=== PATIENT | female | born 1985 | race Caucasian/White ===

== ENCOUNTER → 2016-07-31 | Outpatient (CLI) | payer BC ==
--- NOTE | 2016-07-31 12:03 | XR ---
EXAMINATION TYPE: XR chest 2V DATE OF EXAM ORDERED: 07/31/2016 11:53 AM HISTORY: Bronchitis J20.9. REFERENCE: Previous study dated 05/16/2014. FINDINGS: The lungs are clear. Pleural spaces are clear. Heart size is normal. IMPRESSION: NORMAL CHEST.
== END ==
LOC: RADXRMAIN 11:28
PROVIDERS: ATTEND Internal Medicine
DX: J20.9 Acute bronchitis, unspecified (principal)
CPT/HCPCS: 71020

== ENCOUNTER 2016-10-30 11:19 | Inpatient (IN) | payer BC ==
[2016-11-11] MEDS ORDERED: OXYTOCIN 10 UNIT/ML 1 ML VIAL IM PRN (06:48)
[2016-11-11] MEDS ORDERED: CARBOPROST TROMETHAMINE 250 MCG/ML 1 ML AMP IM PRN (06:48)
[2016-11-11] MEDS ORDERED: TERBUTALINE 1 MG/ML VIAL SQ PRN (06:48)
[2016-11-11] MEDS ORDERED: LIDOCAINE 1% (PF) 10 MG/ML (30 ML SDV) SQ PRN (06:48)
[2016-11-11] MEDS ORDERED: METHYLERGONOVINE 0.2 MG/ML 1 ML AMP IM PRN (06:48)
[2016-11-11] MEDS ORDERED: PENICILLIN G POTASSIUM 5,000,000 UNIT in DEXTROSE 5% IN WATER 100 ML IV STA ×2 (06:50)
[2016-11-11] MEDS ORDERED: OXYTOCIN 20 UNITS/1000 ML NS 1,000 ML IV SCH (07:00)
[2016-11-11] MEDS: LACTATED RINGERS 1,000 ML IV SCH ×3 (07:26→16:13)
[2016-11-11 07:27] LABS: Basophils % (A) 0 %; CH 33.3; CHCM 35.5; Eosinophils % (A) 1 %; HCT 35.8 % (34.0-46.0); HDW 2.75; HGB 13.2 gm/dL (11.4-16.0); Luc # (Auto) 0.11; Luc % (Auto) 2; Lymphocytes # (A) 1.6 k/uL (1.0-4.8); Lymphocytes % (A) 21 %; MCH 34.8 pg (25.0-35.0); MCHC 36.9 g/dL (31.0-37.0); MCV 94.3 fL (80.0-100.0); Mean Platelet Volume 9.1; Monocytes # (A) 0.3 k/uL (0-1.0); Monocytes % (A) 4 %; Neutrophils # (A) 5.3 k/uL (1.3-7.7); Neutrophils % (A) 72 %; RDW 13.9 % (11.5-15.5); WBC 7.3 k/uL (3.8-10.6); WBC (Perox) 7.15
[2016-11-11 07:46] VITALS: BMI 32.9
[2016-11-11] MEDS ORDERED: BUTORPHANOL 1 MG/ML 1 ML VIAL IV PRN (08:38)
--- NOTE | 2016-11-11 08:43 | P.HPOB ---
History of Present Illness H&P Date: 11/11/16 Chief Complaint: 41-3/7, induction The patient is a 31-year-old 3 para 2 scissors or 2 admitted at 41-3/7 weeks as established by last menstrual period and confirmed by an 18 week ultrasound. She is admitted for induction of labor with all signs reassuring. Her has been essentially uncomplicated though she had multiple episodes of benign tachycardia for which she underwent a cardiology consultation as well as long-term cardiac monitoring which demonstrated only benign findings. She was not medicated during the despite the fact that she was occasionally symptomatic. Group B strep status is positive. Obstetrical history: 3 para 2001 with 2 term vaginal deliveries with a compilations. Current statistics are listed in history of present illness. EDC of 10/30/2016 was established by last menstrual period and confirmed by 18 week ultrasound. Laboratory workup demonstrates a blood type of A+ with a negative antibody screen. Rubella status is immune. The remainder of her laboratory workup was within normal limits. One hour Glucola was negative and group B strep status is positive. Gynecologic history: is unremarkable with no history of any infections to include STDs. Review of Systems Review of systems is confined to history of present illness. Past Medical History Past Medical History: No Reported History History of Any Multi-Drug Resistant Organisms: None Reported Past Surgical History: Cholecystectomy, Orthopedic Surgery, Tonsillectomy Additional Past Surgical History / Comment(s): Left hip surgery Past Anesthesia/Blood Transfusion Reactions: No Reported Reaction Past Psychological History: Anxiety Smoking Status: Never smoker Past Drug Use History: None Reported - Past Family History Father History Unknown: Yes Family Medical History: Hypertension Medications and Allergies Home Medications Medication Instructions Recorded Confirmed Type Pnv,Calcium 72/Iron/Folic Acid 1 each PO DAILY 08/10/16 11/11/16 History [ Plus Tablet] Allergies Allergy/AdvReac Type Severity Reaction Status Date / Time latex Allergy Rash/Hives Verified 11/11/16 06:48 Sulfa (Sulfonamide Allergy Dyspnea Verified 11/11/16 06:48 Antibiotics) Exam - Vital Signs Vital signs: Vital Signs Temp Pulse Resp BP 11/11/16 06:48 97.3 F L 82 18 105/71 Intake and Output 11/10/16 11/11/16 11/11/16 22:59 06:59 14:59 Other: Weight 81.647 kg In general, this is a well-developed, well-nourished white female in no acute distress. Her heart has regular rhythm and rate without murmur. Her lungs are clear to auscultation bilaterally in all bolanos. Her abdomen is gravid, nondistended, has normal active bowel sounds, soft, nontender, without any palpable masses aside from uterine fundus. Her extremities are without any cyanosis, clubbing, or edema and are nontender to palpation bilaterally. Digital cervical examination on straights her cervix to be 2 cm dilated, 70% effaced, the vertex in presentation at -2 station. Artificial rupture of membranes is carried out demonstrate clear fluid. Results Result Diagrams: 11/11/16 07:10 Assessment and Plan (1) Group B streptococcal infection in Status: Acute (2) Post-dates Status: Acute Plan: The patient is admitted for induction of labor. Pitocin has been started and artificial rupture of membranes carried out. She will have close maternal and surveillance and expectant management will be practiced. She is a good candidate for either IV or epidural analgesia, whichever she may choose. She does have a history of blood pressure concerns at the time of epidural placement which will be managed carefully by anesthesia.
[2016-11-11] MEDS: PENICILLIN G POTASSIUM 2,500,000 UNIT in DEXTROSE 5% IN WATER 100 ML IV SCH ×6 (11:41→20:03)
[2016-11-11] MEDS ORDERED: SODIUM CHLORIDE 0.9% 100 ML BAG ONE (13:11)
[2016-11-11] MEDS ORDERED: fentaNYL (PF) 50 MCG/ML 5 ML AMP ONE (13:11)
[2016-11-11] MEDS ORDERED: BUPIVACAINE (PF) 0.25% 30 ML VIAL ONE (13:11)
[2016-11-11] MEDS ORDERED: LANOLIN CREAM 5 GM TUBE TOPICAL PRN (18:58)
[2016-11-11] MEDS ORDERED: WITCH HAZEL 1 EACH MED..PAD TOPICAL PRN (18:58)
[2016-11-11] MEDS ORDERED: BENZOCAINE/MENTHOL SPRAY 1 GM/SPRAY AEROSOL TOPICAL PRN (18:58)
[2016-11-11] MEDS ORDERED: ZOLPIDEM 5 MG TAB PO PRN (18:58)
[2016-11-11] MEDS ORDERED: diphenhydrAMINE 50 MG/ML 1 ML VIAL IVP PRN ×2 (18:58)
[2016-11-11] MEDS ORDERED: diphenhydrAMINE 25 MG CAP PO PRN (18:58)
[2016-11-11] MEDS ORDERED: diphenhydrAMINE 50 MG CAP PO PRN (18:58)
[2016-11-11] MEDS ORDERED: Acetaminophen-Codeine 300-30mg TAB PO PRN ×2 (18:58)
[2016-11-11] MEDS ORDERED: SIMETHICONE 80 MG CHEWABLE PO PRN (18:58)
[2016-11-11] MEDS ORDERED: HYDROCORTISONE 2.5% RECTAL CREAM 30 GM TUBE RECTAL PRN (18:58)
[2016-11-11] MEDS ORDERED: ACETAMINOPHEN TAB 325 MG TAB PO PRN (18:58)
--- NOTE | 2016-11-11 19:02 | P.PROBDLV ---
Vaginal Delivery Note - . Vaginal Delivery Note: The patient is a 31-year-old 3 para 2001 admitted at 41-3/7 weeks by good dating parameters. She is admitted for postdates induction of labor with all signs reassuring. Her was essentially uncomplicated though she did have episodes of symptomatic tachycardia for which cardiology was consulted but no medications were started. On labor and delivery, she had Pitocin started followed by artificial rupture of membranes demonstrating clear fluid. She had an epidural catheter placed around the onset of the active phase of labor. She made steady progress throughout the day and ultimately progressed to an anterior lip. She was able to push past the anterior lip and then pushed over the course of approximately 20 minutes to a normal spontaneous vaginal delivery of a viable 9 lbs. 7 oz. baby boy with Apgars of 9 at 1 minute and 9 at 5 minutes delivered in the right occiput anterior position. The placenta was delivered spontaneously, intact, and grossly normal with a grossly normal three-vessel cord inserted approximately 5-6 cm from the margin of the placenta. There was a small first-degree midline perineal laceration likely over the site of previous lacerations which was repaired with a single figure-of -eight stitch of 3-0 chromic catgut. Estimated blood loss for the case is approximately 300 mL. There were no complications. All sponge, instrument, and needle counts were correct. Both mother and are resting comfortably in recovery.
[2016-11-11] MEDS: SENNOSIDES-DOCUSATE SODIUM 1 EACH TAB PO SCH (19:31)
[2016-11-11] MEDS: IBUPROFEN 600 MG TAB PO PRN (19:31)
[2016-11-12] MEDS: SENNOSIDES-DOCUSATE SODIUM 1 EACH TAB PO SCH ×2 (07:43→19:58)
[2016-11-12] MEDS: IBUPROFEN 600 MG TAB PO PRN ×3 (07:43→18:48)
--- NOTE | 2016-11-12 08:48 | P.PNOBGVD ---
Subjective - Subjective Patient reports: Reports appetite normal, Reports voiding normally, Reports pain well controlled, Reports ambulating normally : doing well Objective - Latest Vital Signs Latest vital signs: Vital Signs Temp Pulse Resp BP Pulse Ox 11/12/16 08:00 97.6 F 88 16 107/60 11/12/16 03:34 98.6 F 70 14 99/56 11/11/16 23:36 96.6 F L 101 H 14 111/60 11/11/16 20:48 98.3 F 80 16 103/59 98 11/11/16 20:18 98.2 F 96 16 125/59 11/11/16 19:48 96.8 F L 74 16 108/54 99 11/11/16 19:33 92 16 117/68 11/11/16 19:15 97.5 F L 74 16 105/59 11/11/16 18:59 98 18 110/60 11/11/16 18:48 99.1 F 85 18 107/54 Intake and Output 11/11/16 11/12/16 11/12/16 22:59 06:59 14:59 Intake Total 1100 Output Total 300 Balance -300 1100 Intake: Intake, IV Titration 1100 Amount Lactated Ringers 1,000 ml 100 @ 125 mls/hr IV .Q8H LC Rx#:[id number] Oxytocin 20 Units/1000 ml 1000 Ns 1,000 ml @ 1 MILLIUNIT/MIN 3 mls/hr IV .Q24H LC Rx#:[id number] Output: Estimated Blood Loss 300 Other: # Voids 2 1 - Exam Extremities: Present: normal Abdomen: Present: normal appearance, soft Uterus: Present: normal, firm (The uterine fundus as tonic and nontender just below the umbilicus.) Assessment and Plan (1) Group B streptococcal infection in Current Visit: Yes Status: Acute Code(s): O98.819 - OTH MATERNAL INFEC/ PARASTC DISEASES COMP PREG, UNSP TRI; B95.1 - STREPTOCOCCUS, GROUP B, CAUSING DISEASES CLASSD ELSWHR SNOMED Code(s): 182012899 (2) Post-dates Current Visit: Yes Status: Acute Code(s): O48.0 - POST-TERM SNOMED Code(s): 16268949 (3) Normal spontaneous vaginal delivery Narrative/Plan: Continue routine care. Anticipate discharge home tomorrow morning. Current Visit: Yes Status: Acute Code(s): O80 - ENCOUNTER FOR FULL-TERM UNCOMPLICATED DELIVERY SNOMED Code(s): 16383733
[2016-11-13 00:35] VITALS: RESP 18; TEMP 98.5
[2016-11-13] MEDS: IBUPROFEN 600 MG TAB PO PRN (04:03)
[2016-11-13] MEDS: SENNOSIDES-DOCUSATE SODIUM 1 EACH TAB PO SCH (07:42)
[2016-11-13 09:06] VITALS: BP 106/59; PULSE 81
--- NOTE | 2016-11-13 10:38 | P.DS ---
Providers Date of admission: 11/11/16 06:39 Expected date of discharge: 11/13/16 Attending physician: Nick Munroe Primary care physician: Stated None - Discharge Diagnosis(es) (1) Group B streptococcal infection in Current Visit: Yes Status: Acute (2) Post-dates Current Visit: Yes Status: Acute (3) Normal spontaneous vaginal delivery Current Visit: Yes Status: Acute Hospital Course: The patient is a 31-year-old 3 para 2001 admitted at 41-3/7 weeks for induction of labor. She is admitted with all signs reassuring. Her has been uncomplicated aside from episodes of benign tachycardia which were somewhat symptomatic. A cardiology workup was negative for any significant findings and she was never medicated. Group B strep status was positive. As result, she had antibiotic prophylaxis started along with Pitocin. She underwent artificial rupture of membranes for clear fluid. She had an epidural catheter placed around the onset of active phase of labor. She made steady progress throughout the day and ultimately reached complete. She then pushed to a normal spontaneous vaginal delivery of a viable 9 lbs. 7 oz. baby boy with Apgars of 9 at 1 minute and 9 at 5 minutes. Her post course was entirely unremarkable with vital signs remaining stable and her temperature was afebrile throughout. She was deemed stable for discharge by day #2 and was discharged home to follow-up in the office in 6 weeks' time routinely. Discharge instructions included calling for any significantly increased bleeding or foul-smelling lochia, significantly increased fever abdominal pain, perineal complaints, breast complaints, or anything else that concerned her. She was additionally instructed to have nothing in the vagina for at least 6 weeks time to include intercourse. She understood her instructions and agrees to follow up as noted above. Discharge medications included continued vitamins as she has opted to breast-feed. She otherwise was to use over-the- counter analgesic pain medications as necessary. Maternal blood type is A+ and rubella status is immune. Procedures: #1. Pitocin augmentation #2. Antibiotic prophylaxis #3. Artificial rupture of membranes #4. Epidural analgesia #5. Normal spontaneous vaginal delivery # 6. Repair of small perineal laceration Patient Condition at Discharge: Good Plan - Discharge Summary New Discharge Prescriptions: No Action Pnv,Calcium 72/Iron/Folic Acid [ Plus Tablet] 1 each PO DAILY Discharge Medication List Pnv,Calcium 72/Iron/Folic Acid [ Plus Tablet] 1 each PO DAILY 08/10/16 [ History] Follow up Appointment(s)/Referral(s): Nick Munroe MD [STAFF PHYSICIAN] - 6 Weeks Discharge Disposition: HOME SELF-CARE
== END 2016-11-13 12:05 | disposition home or self-care (01) | DRG 775 ==
LOC: 4FBP 11-11 06:39
PROVIDERS: ADMIT Obstetrics & Gynecology; ATTEND Obstetrics & Gynecology
PROC: 00HU33Z Insertion of Infusion Device into Spinal Canal, Percutaneous Approach (ICD-10-PCS; principal; 2016-11-11)
PROC: 10E0XZZ Delivery of Products of Conception, External Approach (ICD-10-PCS; principal; 2016-11-11)
PROC: 0HQ9XZZ Repair Perineum Skin, External Approach (ICD-10-PCS; principal; 2016-11-11)
PROC: 3E033VJ Introduction of Other Hormone into Peripheral Vein, Percutaneous Approach (ICD-10-PCS; principal; 2016-11-11)
PROC: 3E0R3CZ (ICD-10-PCS; principal; 2016-11-11)
PROC: 10907ZC Drainage of Amniotic Fluid, Therapeutic from Products of Conception, Via Natural or Artificial Opening (ICD-10-PCS; principal; 2016-11-11)
DX: O48.0 Post-term pregnancy (principal); O99.824 Streptococcus B carrier state complicating childbirth; Z91.040 Latex allergy status; Z88.2 Allergy status to sulfonamides; O70.0 First degree perineal laceration during delivery
CPT/HCPCS: 85025; 88307

== ENCOUNTER → 2018-04-13 | Outpatient (CLI) | payer BC ==
--- NOTE | 2018-04-13 15:18 | US ---
EXAMINATION TYPE: US thyroid st tissue head/neck DATE OF EXAM: 04/13/2018 COMPARISON: NONE CLINICAL HISTORY: E04.9 Nontoxic goiter. Pt states difficulty swallowing GLAND SIZE: Right Lobe: 4.1 x 1.5 x 1.1 cm Overall Parenchyma: homogenous Left Lobe: 3.9 x 1.3 x 1.2 cm Overall Parenchyma: homogeneous Isthmus Thickness: 0.3 cm Bilateral neck scanned, no evidence of lymphadenopathy. Bilateral thyroid appeared wnl. IMPRESSION: No distinct abnormality appreciated.
[2018-04-14 03:34] LABS: Gliadin AB IgA, Unit 0.5 U/mL
== END ==
LOC: RADUSWWP 14:55
PROVIDERS: ATTEND Allergy & Immunology
DX: E04.9 Nontoxic goiter, unspecified (principal); K58.9 Irritable bowel syndrome, unspecified
CPT/HCPCS: 76536; 82784; 83516

== ENCOUNTER → 2018-09-06 | Outpatient (CLI) | payer BC ==
[2018-09-06 08:15] LABS: Basophils % (A) 0 %; Eosinophils % (A) 1 %; HCT 38.6 % (34.0-46.0); Lymphocytes # (A) 1.6 k/uL (1.0-4.8); Lymphocytes % (A) 31 %; MCH 31.6 pg (25.0-35.0); MCHC 33.8 g/dL (31.0-37.0); MCV 93.7 fL (80.0-100.0); Mean Platelet Volume 7.2; Monocytes # (A) 0.2 k/uL (0-1.0); Monocytes % (A) 4 %; Neutrophils # (A) 3.2 k/uL (1.3-7.7); Neutrophils % (A) 63 %; Platelet Count 250 k/uL (150-450); RBC 4.12 m/uL (3.80-5.40); RDW 12.9 % (11.5-15.5); WBC 5.1 k/uL (3.8-10.6)
[2018-09-06 11:12] LABS: Albumin 4.3 g/dL (3.80-4.90); Albumin/Globulin Ratio 2.53 (1.60-3.17); Anion Gap 6.9 mmol/L (4.00-12.00); Calcium 9.1 mg/dL (8.7-10.3); Carbon Dioxide 27.1 mmol/L (21.6-31.8); Globulin 1.7 g/dL (1.6-3.3); Potassium 3.8 mmol/L (3.5-5.5); Total Bilirubin 1.1 mg/dL (0.2-1.2)
[2018-09-06 11:19] LABS: Vitamin D 25 Hydroxy 17.1 ng/mL (30.0-100.0)
== END | disposition home or self-care (01) ==
LOC: LABWHC1 07:37
PROVIDERS: ATTEND Physician Assistant Medical
DX: Z00.00 Encounter for general adult medical examination without abnormal findings (principal); Z13.220 Encounter for screening for lipoid disorders; Z13.228 Encounter for screening for other metabolic disorders; F41.9 Anxiety disorder, unspecified; O90.6 Postpartum mood disturbance
CPT/HCPCS: 36415; 80053; 80061; 82306; 82607; 84443; 85025

== ENCOUNTER → 2018-09-19 | Outpatient (CLI) | payer BC ==
--- NOTE | 2018-09-19 14:58 | XR ---
Left ankle and left leg HISTORY: Pain x2 weeks 3 views of the left ankle and 2 views of the left leg are submitted. There is no periostitis to suggest fracture healing. Bone mineralization, joint spaces and alignment are maintained. IMPRESSION: No radiographically apparent fracture or dislocation. Bone scan may be of increased sensi tivity as indicated.
== END | disposition home or self-care (01) ==
LOC: RADXRMAIN 14:03
PROVIDERS: ATTEND Physician Assistant Medical
DX: M25.572 Pain in left ankle and joints of left foot (principal); M79.605 Pain in left leg

== ENCOUNTER → 2018-11-17 | Outpatient (CLI) | payer BC ==
[2018-11-17 13:15] LABS: Basophils % (A) 1 %; Eosinophils # (A) 0.1 k/uL (0-0.7); Eosinophils % (A) 1 %; HCT 38.7 % (34.0-46.0); HGB 12.9 gm/dL (11.4-16.0); Lymphocytes # (A) 1.6 k/uL (1.0-4.8); Lymphocytes % (A) 25 %; MCH 31.1 pg (25.0-35.0); MCHC 33.3 g/dL (31.0-37.0); MCV 93.4 fL (80.0-100.0); Mean Platelet Volume 7.6; Monocytes # (A) 0.3 k/uL (0-1.0); Monocytes % (A) 4 %; Neutrophils # (A) 4.3 k/uL (1.3-7.7); Neutrophils % (A) 68 %; Platelet Count 265 k/uL (150-450); RBC 4.14 m/uL (3.80-5.40); RDW 12.9 % (11.5-15.5); WBC 6.3 k/uL (3.8-10.6)
[2018-11-17 19:08] LABS: African American GFR (CKD) 131.9 (60.0-200.0); Albumin 4.3 g/dL (3.80-4.90); Albumin/Globulin Ratio 2.53 (1.60-3.17); Anion Gap 5.8 mmol/L (4.00-12.00); Calcium 9.2 mg/dL (8.7-10.3); Carbon Dioxide 28.2 mmol/L (21.6-31.8); Globulin 1.7 g/dL (1.6-3.3); Potassium 4.2 mmol/L (3.5-5.5); Total Bilirubin 0.5 mg/dL (0.2-1.2)
== END | disposition home or self-care (01) ==
LOC: LABWHC1 12:59
PROVIDERS: ATTEND Physician Assistant Medical
DX: Z00.00 Encounter for general adult medical examination without abnormal findings (principal); O90.6 Postpartum mood disturbance; F41.9 Anxiety disorder, unspecified; Z13.228 Encounter for screening for other metabolic disorders
CPT/HCPCS: 36415; 80053; 82306; 82607; 84443; 85025

== ENCOUNTER → 2019-07-19 | Outpatient (CLI) | payer BC ==
[2019-07-19 12:40] LABS: Basophils % (A) 1 %; Eosinophils # (A) 0.1 k/uL (0-0.7); Eosinophils % (A) 1 %; HCT 37.8 % (34.0-46.0); HGB 12.6 gm/dL (11.4-16.0); Lymphocytes # (A) 1.5 k/uL (1.0-4.8); Lymphocytes % (A) 37 %; MCH 31.3 pg (25.0-35.0); MCHC 33.3 g/dL (31.0-37.0); Mean Platelet Volume 7.4; Monocytes # (A) 0.2 k/uL (0-1.0); Monocytes % (A) 5 %; Neutrophils # (A) 2.1 k/uL (1.3-7.7); Neutrophils % (A) 53 %; Platelet Count 301 k/uL (150-450); RBC 4.02 m/uL (3.80-5.40); RDW 12.8 % (11.5-15.5)
[2019-07-19 17:09] LABS: ALT 25 U/L (8-44); AST 26 U/L (13-35); Albumin/Globulin Ratio 2.32 (1.60-3.17); Alkaline Phosphatase 66 U/L (41-126); BUN/Creat Ratio 12.86 Ratio (12.00-20.00); C Reactive Protein <0.4 mg/dL (0.0-0.8); Calcium 9.2 mg/dL (8.7-10.3); Carbon Dioxide 26.2 mmol/L (21.6-31.8); Chloride 103 mmol/L (96-109); Chol/HDL Ratio 3.22; Cholesterol 206 mg/dL (0-200); Globulin 1.9 g/dL (1.6-3.3); Glucose 78 mg/dL (70-110); LDL Cholesterol,Calculated 129.6 mg/dL (0.0-131.0); Potassium 3.9 mmol/L (3.5-5.5); Sodium 140 mmol/L (135-145); Total Bilirubin 0.5 mg/dL (0.3-1.2); Total Protein 6.3 g/dL (6.2-8.2)
[2019-07-19 17:43] LABS: Folate, Serum 18.6 ng/mL
[2019-07-19 18:11] LABS: Hemoglobin A1C 4.9 % (4.0-6.0)
== END | disposition home or self-care (01) ==
LOC: LABWHC1 11:05
PROVIDERS: ATTEND Clinical Nurse Specialist Psychiatric/Mental Health
DX: F43.23 Adjustment disorder with mixed anxiety and depressed mood (principal)
CPT/HCPCS: 36415; 80053; 80061; 82248; 82306; 82607; 82746; 83036; 84439; 84443; 84479; 85025; 86140

== ENCOUNTER → 2020-01-23 | Outpatient (CLI) | payer BC ==
--- NOTE | 2020-01-24 07:36 | US ---
EXAMINATION TYPE: US pelvis complete transvag DATE OF EXAM: 01/23/2020 COMPARISON: US CLINICAL HISTORY: N93.8 Abn vag bleed, Z80.49 Fam hx neoplasm genita. Pt states LMP in September 2019 which is not normal for her TECHNIQUE: Transvaginal (TV) and Transabdominal (TA) . Transabdominal sonographic images of the pel vis were acquired. Transvaginal sonographic images were medically necessary to better assess the fol lowing anatomy: Uterus Date of LMP: September 2019 EXAM MEASUREMENTS: Uterus: 10.5 x 4.5 x 5.3 cm Endometrial Stripe: 1.0 cm Right Ovary: 3.3 x 2.9 x 2.6 cm Left Ovary: 2.5 x 2.5 x 1.7 cm 1. Uterus: Anteverted Heterogeneous 2. Endometrium: wnl 3. Right Ovary: Cyst= 3.0 x 1.9 x 2.2 cm 4. Left Ovary: wnl, follicles 5. Bilateral Adnexa: wnl 6. Posterior cul-de-sac: wnl Urinary bladder is visualized is unremarkable. IMPRESSION: 1. Right ovarian simple cyst. Follow-up can be performed.
== END | disposition home or self-care (01) ==
LOC: RADUSWWP 16:22
PROVIDERS: ATTEND Family Medicine
DX: N83.291 Other ovarian cyst, right side (principal); Z80.49 Family history of malignant neoplasm of other genital organs
CPT/HCPCS: 76830; 76856

== ENCOUNTER → 2020-03-18 | Outpatient (CLI) | payer BC ==
[2020-03-18 09:21] LABS: Basophils % (A) 1 %; Eosinophils # (A) 0.1 k/uL (0-0.7); Eosinophils % (A) 3 %; HCT 39.1 % (34.0-46.0); Lymphocytes # (A) 1.7 k/uL (1.0-4.8); Lymphocytes % (A) 36 %; MCH 31.5 pg (25.0-35.0); MCHC 33.3 g/dL (31.0-37.0); MCV 94.7 fL (80.0-100.0); Mean Platelet Volume 6.9; Monocytes # (A) 0.2 k/uL (0-1.0); Monocytes % (A) 5 %; Neutrophils # (A) 2.6 k/uL (1.3-7.7); Neutrophils % (A) 54 %; Platelet Count 315 k/uL (150-450); RBC 4.13 m/uL (3.80-5.40); RDW 13.2 % (11.5-15.5); WBC 4.8 k/uL (3.8-10.6)
== END | disposition home or self-care (01) ==
LOC: LABPAT 08:39
PROVIDERS: ATTEND Obstetrics & Gynecology
DX: Z01.818 Encounter for other preprocedural examination (principal); N92.0 Excessive and frequent menstruation with regular cycle
CPT/HCPCS: 36415; 85025

== ENCOUNTER 2020-03-19 08:00 | Day surgery (SDC) | payer BC ==
--- NOTE | 2020-03-18 11:12 | HP ---
HISTORY AND PHYSICAL DATE OF SURGERY: 03/19/2020. HISTORY OF PRESENT ILLNESS: The patient is a 34-year-old 3, para 3-0-0-3, who presents with a history of menorrhagia which has been increasing and problematic for her over time. She has a significant amount of clotting and occasionally bleeds through protection. She has requested definitive therapy as her partner has a vasectomy and specifically requested NovaSure endometrial ablation. Endometrial biopsy done in the office demonstrated benign findings. PAST MEDICAL HISTORY: Significant only for history of stomach ulcer as well as some anxiety, irritable bowel syndrome, and PMS. PAST SURGICAL HISTORY: She had a cholecystectomy in 2011. She has hip surgery in 2014. She had tonsillectomy in 2001 and wisdom teeth extraction in 2004. There were no apparent anesthetic concerns. OBSTETRICAL HISTORY: 3, para 3-0-0-3 with 3 term vaginal deliveries without complications. Method of contraception is vasectomy. GYNECOLOGIC HISTORY: Unremarkable with no history of any infections to include STDs. FAMILY HISTORY: Noncontributory. SOCIAL HISTORY: The patient is and works outside home with [employer] Services. She is a nonsmoker and reports occasional alcohol. No this. No other social concerns. CURRENT MEDICATIONS: Include bupropion hydrochloride 75 mg daily, alprazolam 0.5 mg p.r.n. ALLERGIES: Are to LATEX as well as SULFA, which caused a rash with some swelling and itching. She additionally has seasonal allergies. REVIEW OF SYSTEMS: Confined to history of present illness. PHYSICAL EXAMINATION: Vital signs are stable. The patient is afebrile. In general, this is a well- developed, well-nourished white female in no acute distress. Her heart has regular rhythm and rate without murmur. Her lungs are clear to auscultation bilaterally in all bolanos. Her abdomen is nondistended and has normoactive bowel sounds, soft, nontender, and without any palpable masses, hepatosplenomegaly, or hernias. Her extremities are without any cyanosis, clubbing, or edema and are nontender to palpation bilaterally. Pelvic examination demonstrates normal external genitalia and BUS with normal vaginal mucosa and cervix. There is no cervical motion tenderness. Uterus is 4-5 weeks in size, mid plane, mobile, nontender, normal in shape. The adnexa are normal and nontender without mass bilaterally. ASSESSMENT AND PLAN: Menorrhagia: We have discussed multiple options and the patient has requested definitive treatment with no diagnostic hysteroscopy with NovaSure endometrial ablation. Risks and complications of the procedure have been thoroughly discussed including the risks for bleeding, bleeding requiring transfusion, infection, and injury to local structures to specifically include uterine perforation, subsequent Asherman syndrome, and subsequent hematometra. She has understood all this and agreed to proceed. We are scheduled for the above procedure for the diagnoses as outlined above on the morning of March 19, 2020. MMODL / IJN: [id number] /
[~2020-03-19 08:00] MED LIST: DEXAMETHASONE SOD PHOSPHATE 4 MG/ML 1 ML VIAL IV ONE; HYDROmorphone 0.5 MG/0.5 ML SYRINGE IVP PRN; LACTATED RINGERS 1,000 ML IV SCH; LIDOCAINE 1% (10MG/ML) FOR IV START INTRADERMA PRN; MIDAZOLAM 2 MG/2 ML VIAL IV PRN; ONDANSETRON 4 MG/2 ML VIAL IVP ONE; Pre Op ABX Message 1 EACH MISC MISCELLANE ONE
[2020-03-19] MEDS ORDERED: fentaNYL (PF) 50 MCG/ML 2 ML AMP ONE (09:25)
[2020-03-19] MEDS ORDERED: LIDOCAINE 1% INJ 10MG/ML (20 ML MDV) ONE (09:25)
[2020-03-19] MEDS ORDERED: KETOROLAC 15 MG/ML 1 ML VIAL ONE (09:25)
[2020-03-19] MEDS ORDERED: MIDAZOLAM 2 MG/2 ML VIAL ONE (09:25)
[2020-03-19] MEDS ORDERED: PROPOFOL 10 MG/ML 20 ML VIAL IV ONE (09:25)
[2020-03-19] MEDS ORDERED: KETOROLAC 15 MG/ML 1 ML VIAL IVP PRN (10:05)
[2020-03-19] MEDS ORDERED: diphenhydrAMINE 50 MG/ML 1 ML VIAL IVP PRN (10:05)
[2020-03-19] MEDS ORDERED: Acetaminophen-Codeine 300-30mg TAB PO PRN ×2 (10:05)
[2020-03-19] MEDS ORDERED: METOCLOPRAMIDE 5 MG/ML 2 ML VIAL IVP PRN (10:05)
[2020-03-19] MEDS ORDERED: ONDANSETRON 4 MG/2 ML VIAL IVP PRN (10:05)
[2020-03-19] MEDS ORDERED: IBUPROFEN 600 MG TAB PO PRN (10:05)
[2020-03-19] MEDS ORDERED: SIMETHICONE 80 MG CHEWABLE PO PRN (10:05)
[2020-03-19 10:10] VITALS: TEMP 97.2
--- NOTE | 2020-03-19 10:14 | P.OP ---
Date of Procedure: 03/19/20 Preoperative Diagnosis: #1. Menorrhagia Postoperative Diagnosis: Same Procedure(s) Performed: #1. Diagnostic hysteroscopy #2. Endometrial curettage #3. NovaSure endometrial ablation Anesthesia: other (Gen. by facemask) Surgeon: Nick Munroe Estimated Blood Loss (ml): 5 IV fluids (ml): 500 Urine output (ml): 150 Pathology: other (Endometrial curettings) Condition: stable Disposition: PACU Operative Findings: Preoperative pelvic examination demonstrated a roughly 5-6 week midplane mobile normal shaped uterus with normal adnexa bilaterally. Intraoperatively, the bilateral tubal ostia were seen and there was a moderate amount of shaggy endometrium in the mid posterior fundal portion of the uterus prompting curettage. The small to moderate amount of curettings were sent to pathology for diagnoses. The settings on the NovaSure tool where a length of 6.0 cm, a width of 3.9 cm for a total power of 129 W. Following the procedure, the run time was 58 seconds at which time the base unit read procedure complete. The postprocedural result appeared excellent. The patient is a potential candidate for vaginal instructed he should become necessary. Description of Procedure: The patient was prepped and draped in usual fashion after general anesthesia was established by the anesthesiologist to weighted speculum was placed and the anterior lip of the surgical single-tooth tenaculum after draining the bladder approximate 150 mL of clear deangelo urine. The cervix was sounded to 470s with a total uterine length of 10 7 m. The uterus was dilated and the diagnostic scope placed the findings as noted above. After adequate instructed been carried out, the scope was set aside in the sharp curet introduced and made and retractor cavity curetted in circumferential fashion onto a Telfa in the vagina which was sent to pathology. The NovaSure tool was seated into the uterine cavity with a length of 6.0 cm, width of 3.9 centers for total power 129 W. The cavity check was attempted and passed without difficulty. The tool was enabled and the run was started. After a run time of 58 seconds, the base unit read "procedure complete." The 2 was removed and set aside and the diagnostic scope placed with the result appeared excellent. The
[2020-03-19] MEDS ORDERED: LACTATED RINGERS 1,000 ML IV SCH (10:15)
[2020-03-19 10:57] VITALS: RESP 16
[2020-03-19] MEDS ORDERED: ACETAMINOPHEN TAB 500 MG TAB ONE (11:04)
[2020-03-19] MEDS ORDERED: ACETAMINOPHEN TAB 500 MG TAB PO ONE (11:12)
[2020-03-19 11:24] VITALS: PULSE 74
[2020-03-19 11:30] VITALS: BP 118/78
== END 2020-03-19 11:50 | disposition home or self-care (01) ==
LOC: OR 08:00
PROVIDERS: ATTEND Obstetrics & Gynecology
DX: N92.0 Excessive and frequent menstruation with regular cycle (principal); F41.9 Anxiety disorder, unspecified; K58.9 Irritable bowel syndrome, unspecified; N94.3 Premenstrual tension syndrome; J30.2 Other seasonal allergic rhinitis; F32.9 Major depressive disorder, single episode, unspecified; Z87.11 Personal history of peptic ulcer disease; Z90.49 Acquired absence of other specified parts of digestive tract; Z98.890 Other specified postprocedural states; Z90.89 Acquired absence of other organs; Z79.1 Long term (current) use of non-steroidal anti-inflammatories (NSAID); Z79.899 Other long term (current) drug therapy; Z91.040 Latex allergy status; Z88.2 Allergy status to sulfonamides; Z91.09 Other allergy status, other than to drugs and biological substances
CPT/HCPCS: 81025; 88305; 58563; J2250; J1100; J2405; J2001; J3010; J1885; J2704

== ENCOUNTER → 2020-10-03 | Outpatient (CLI) | payer BC ==
[2020-10-03 14:23] LABS: Basophils # (A) 0.05 X 10*3/uL (0.00-0.10); Eosinophils # (A) 0.11 X 10*3/uL (0.04-0.35); Eosinophils % (A) 2.2 %; HCT 38.3 % (37.2-46.3); HGB 12.7 g/dL (12.0-15.0); Lymphocytes # (A) 1.18 X 10*3/uL (0.90-5.00); Lymphocytes % (A) 23.6 %; MCH 31.7 pg (27.0-32.0); MCHC 33.2 g/dL (32.0-37.0); MCV 95.5 fL (80.0-97.0); Mean Platelet Volume 10.2 fL (9.5-12.2); Monocytes # (A) 0.39 X 10*3/uL (0.20-1.00); Monocytes % (A) 7.8 %; Neutrophils # (A) 3.25 X 10*3/uL (1.80-7.70); Neutrophils % (A) 65.2 %; Platelet Count 284 X 10*3/uL (140-440); RBC 4.01 X 10*6/uL (4.10-5.20); RDW 12.2 % (11.5-14.5); WBC 4.99 X 10*3/uL (4.50-10.00)
[2020-10-03 21:57] LABS: % Iron Saturation 9.07 (12.00-45.00); African American GFR (CKD) 110.7 (60.0-200.0); Albumin 4.2 g/dL (3.80-4.90); Anion Gap 6.3 mmol/L (4.00-12.00); BUN/Creat Ratio 11.25 Ratio (12.00-20.00); Calcium 9.3 mg/dL (8.7-10.3); Carbon Dioxide 25.7 mmol/L (21.6-31.8); Chol/HDL Ratio 2.77; Globulin 2.1 g/dL (1.6-3.3); LDL Cholesterol,Calculated 94.6 mg/dL (0.0-131.0); Non-African American GFR(CKD) 95.5 (60.0-200.0); Total Bilirubin 0.5 mg/dL (0.2-1.2); Total Protein 6.3 g/dL (6.2-8.2); VLDL Calculation 11.4 mg/dL (5.00-40.00)
[2020-10-03 22:22] LABS: Ferritin 14.6 ng/mL (10.0-291.0)
== END | disposition home or self-care (01) ==
LOC: LABWHC1 08:27
PROVIDERS: ATTEND Physician Assistant Medical
DX: Z00.01 Encounter for general adult medical examination with abnormal findings (principal); Z13.220 Encounter for screening for lipoid disorders; Z13.228 Encounter for screening for other metabolic disorders; Z68.28 Body mass index [BMI] 28.0-28.9, adult; F41.9 Anxiety disorder, unspecified; F33.9 Major depressive disorder, recurrent, unspecified
CPT/HCPCS: 36415; 80053; 80061; 82306; 82533; 82607; 82728; 83540; 83550; 84443; 85025

== ENCOUNTER → 2020-12-10 | Outpatient (CLI) | payer BC ==
--- NOTE | 2020-12-11 05:02 | MR ---
EXAMINATION TYPE: MR hip LT wo con DATE OF EXAM: 12/10/2020 COMPARISON: HISTORY: Left hip pain, swelling, clicking, and limited range for 6 years. History of left hip surger y. Multiplanar multiecho imaging of the left hip without contrast. The pelvic ring appears intact. I see no fracture. Proximal femurs are intact. There is no evidence o f avascular necrosis. There is no evidence of any significant joint effusion. I see no soft tissue ma ss. Hip muscles appear fairly symmetric. I see no evidence of a pelvic mass. Bladder distends smoothl y. IMPRESSION: Normal MR scan of the left hip.
== END | disposition home or self-care (01) ==
LOC: RADMRIMAIN 16:36
PROVIDERS: ATTEND Orthopaedic Surgery Sports Medicine
DX: M25.452 Effusion, left hip (principal); M25.552 Pain in left hip

== ENCOUNTER → 2020-12-24 | Outpatient (CLI) | payer BC ==
--- NOTE | 2020-12-24 13:23 | XR ---
EXAMINATION TYPE: XR chest 2V DATE OF EXAM: 12/24/2020 COMPARISON: Chest x-ray July 31, 2016 and CTA chest July 23, 2015 HISTORY: Right-sided chest pain. Pleurodynia. TECHNIQUE: Frontal and lateral views of the chest are obtained. FINDINGS: There is no focal air space opacity, pleural effusion, or pneumothorax seen. The cardiac silhouette size remains within normal limits. The osseous structures are intact. Cholecystectomy cl ips redemonstrated. IMPRESSION: No acute cardiopulmonary process. No significant change from prior studies.
== END | disposition home or self-care (01) ==
LOC: RADXRMAIN 12:16
PROVIDERS: ATTEND Physician Assistant Medical
DX: R07.9 Chest pain, unspecified (principal)
CPT/HCPCS: 71046

== ENCOUNTER → 2020-12-30 | Outpatient (CLI) | payer BC ==
--- NOTE | 2020-12-30 09:22 | CT ---
EXAMINATION TYPE: CT kidney stone wo con DATE OF EXAM: 12/30/2020 COMPARISON: 11/13/2013 HISTORY: 35-year-old female N20.0, R31.9. Renal stone TECHNIQUE: Contiguous axial scanning of the abdomen and pelvis without IV contrast. Coronal and sagit km reconstructions performed. CT DLP: 326.8 mGycm Automated exposure control for dose reduction was used. FINDINGS: Heart normal size without pericardial effusion. Lung bases clear without pleural effusion. Noncontrast appearance of the liver, adrenal glands, spleen, and pancreas show no gross abnormal. Tiny fatty umbilical hernia. Cholecystectomy clips. Tiny 2 mm left midpole renal calculus no additional renal calculi are seen. No hydronephrosis. No dilated small bowel, free fluid, or free air. No mesenteric or retroperitoneal lymphadenopathy. Mild stool burden. No pericolonic inflammatory change. Bladder collapse. Mild circumferential bladder wall thickening. Uterus anteverted. Mild to moderate c ul-de-sac and anterior pelvic free fluid. Multiple pelvic phleboliths. No pelvic lymphadenopathy seen . Bones: No osseous destructive process. IMPRESSION: 1. SOLITARY TINY 2 MM NONOBSTRUCTIVE LEFT RENAL CALCULUS. NO HYDRONEPHROSIS. 2. MILD TO MODERATE PELVIC FREE FLUID BOTH IN THE CUL-DE-SAC AND ANTERIOR TO THE UTERUS. PROBABLY REF LECTING A RECENTLY RUPTURED FOLLICLE OR CYST. CLINICALLY CORRELATE. 3. MILD CIRCUMFERENTIAL BLADDER WALL THICKENING MAY RELATE TO NONDISTENTION. CORRELATE TO EXCLUDE CYS TITIS.
== END | disposition home or self-care (01) ==
LOC: RADCTMAIN 07:01
PROVIDERS: ATTEND Family Medicine
DX: N20.0 Calculus of kidney (principal)
CPT/HCPCS: 74176

== ENCOUNTER → 2021-05-12 | Outpatient (CLI) | payer BC ==
--- NOTE | 2021-05-12 12:44 | MM ---
Reason for exam: screening (asymptomatic). Baseline mammogram. Physical Findings: Nurse did not find any significant physical abnormalities on exam. MG 3D Screening Mammo W/Cad Bilateral CC and MLO view(s) were taken. There are scattered fibroglandular densities. There are benign appearing round calcifications bilaterally. There is no discrete abnormality. ASSESSMENT: Benign, BI-RAD 2 RECOMMENDATION: Routine screening mammogram of both breasts in 1 year.
== END | disposition home or self-care (01) ==
LOC: RADMAMWWP 10:50
PROVIDERS: ATTEND Obstetrics & Gynecology
DX: Z12.31 Encounter for screening mammogram for malignant neoplasm of breast (principal)
CPT/HCPCS: 77063; 77067

== ENCOUNTER → 2022-03-13 | Outpatient (CLI) | payer BC ==
--- NOTE | 2022-03-13 17:19 | US ---
EXAMINATION TYPE: US kidneys/renal and bladder DATE OF EXAM: 03/13/2022 COMPARISON: NONE CLINICAL HISTORY: N39.9 UTI, N20.0 KIDNEY STONE. Hx of stones. EXAM MEASUREMENTS: Right Kidney: 10.4 x 3.9 x 4.7 cm Left Kidney: 10.3 x 4.6 x 4.6 cm Right Kidney: Anechoic area mid pole 2.0 x 1.3 x 1.3 cm. Left Kidney: No hydronephrosis or masses seen Bladder: wnl Bilateral Jets seen: Yes IMPRESSION: 1. No evidence of obstructive uropathy. No renal stones definitively visualized. 2. Mild pyelocaliectasis.
== END | disposition home or self-care (01) ==
LOC: RADUSWWP 16:22
PROVIDERS: ATTEND Urology
DX: N39.9 Disorder of urinary system, unspecified (principal)
CPT/HCPCS: 76770

== ENCOUNTER → 2022-04-01 | Outpatient (CLI) | payer BC ==
[~2022-04-01] MED LIST changes: -DEXAMETHASONE SOD PHOSPHATE 4 MG/ML 1 ML VIAL IV ONE; +FUROSEMIDE 10 MG/ML 2 ML VIAL IV ONE; -HYDROmorphone 0.5 MG/0.5 ML SYRINGE IVP PRN; -LACTATED RINGERS 1,000 ML IV SCH; -LIDOCAINE 1% (10MG/ML) FOR IV START INTRADERMA PRN; -MIDAZOLAM 2 MG/2 ML VIAL IV PRN; -ONDANSETRON 4 MG/2 ML VIAL IVP ONE; -Pre Op ABX Message 1 EACH MISC MISCELLANE ONE
--- NOTE | 2022-04-01 15:27 | NM ---
EXAMINATION TYPE: NM lasix renogram DATE OF EXAM: 04/01/2022 2:42 PM CLINICAL INDICATION:Female, 36 years old with history of N13.30 HYDRONEPHROSIS; Comparisons: CT kidney 12/30/2020. Following administration of 10.2 mCi Tc 99m MAG3 with 20mg Lasix. Immediate images post injection FINDINGS: Left: 53.4 %. Right: 46.6 %. Max renal flow left: 3 minutes. Max renal flow right: 3 minutes. Satisfactory accumulation of radiotracer within both renal collecting systems. After the administrati on of Lasix, there is prompt excretion from both collecting systems. T 1/2 left: 15.3 minutes minutes. T 1/2 right: 17.3 minutes minutes. IMPRESSION: No evidence of obstruction Normal Split renal function for the kidneys
== END | disposition home or self-care (01) ==
LOC: RADNMMAIN 12:58
PROVIDERS: ATTEND Urology
DX: N13.30 Unspecified hydronephrosis (principal)
CPT/HCPCS: 78708; A9562

== ENCOUNTER → 2022-08-11 | Outpatient (CLI) | payer BC ==
--- NOTE | 2022-08-11 13:33 | US ---
EXAMINATION TYPE: US renals and bladder DATE OF EXAM: 08/11/2022 COMPARISON: US dated 03/13/[address] dated 12/30/2020 CLINICAL HISTORY: N28.1 CYST OF KIDNEY, N39.0 UTI. EXAM MEASUREMENTS: Right Kidney: 11.4 x 4.8 x 5.0 cm Left Kidney: 11.8 x 5.6 x 5.2 cm Post void: 20.94 ml Right Kidney: mild hydro noted, no obvious stone seen. Left Kidney: No hydronephrosis or masses seen Bladder: wnl Bilateral Jets seen: Yes Normal Post Void Residual: Yes No nephrolithiasis is seen. No masses are identified. The urinary bladder is anechoic. Bilateral u reteral jets are seen. IMPRESSION: Mild right-sided hydronephrosis.
--- NOTE | 2022-08-11 14:11 | US ---
EXAMINATION TYPE: US transvaginal DATE OF EXAM: 08/11/2022 COMPARISON: US dated 06/12/2022 CLINICAL HISTORY: N39.0 UTI. Follow up ovarian cyst TECHNIQUE: Transvaginal (TV). Date of LMP: history of ablation, no regular cycles. EXAM MEASUREMENTS: Uterus: 8.7 x 3.9 x 5.8 cm Endometrial Stripe: 0.7 cm Right Ovary: 3.8 x 1.9 x 4.1 cm Left Ovary: 2.8 x 2.1 x 2.3 cm 1. Uterus: Anteverted wnl 2. Endometrium: measures 0.7 cm 3. Right Ovary: 2.7 x 1.6 x 2.5 cm mixed lesion with peripheral flow. 4. Left Ovary: wnl 5. Bilateral Adnexa: wnl 6. Posterior cul-de-sac: small amount of free fluid. IMPRESSION: Complex lesion right ovary could reflect a hemorrhagic cyst or endometrioma with prior measurement of 3.3 x 2.8 x 3.6 cm. lesion of other etiology is not excluded. Consider continued follow-up or direct visualization as indicated.
== END | disposition home or self-care (01) ==
LOC: RADUSWWP 12:44
PROVIDERS: ATTEND Family Medicine
DX: N39.0 Urinary tract infection, site not specified (principal); N28.1 Cyst of kidney, acquired; N83.202 Unspecified ovarian cyst, left side; N13.30 Unspecified hydronephrosis; N83.8 Other noninflammatory disorders of ovary, fallopian tube and broad ligament
CPT/HCPCS: 76770; 76830

== ENCOUNTER 2022-10-02 17:39 | Emergency (ER) | payer BC ==
[2022-10-02 17:46] VITALS: TEMP 97.8
[2022-10-02] MEDS ORDERED: SODIUM CHLORIDE 0.9% 1,000 ML IV STA (19:27)
--- NOTE | 2022-10-02 19:28 | ED ---
Arrhythmia/Palpitations HPI - General Chief Complaint: Arrhythmia/Palpitations Stated Complaint: Increased heart rate Time Seen by Provider: 10/02/22 19:06 Source: patient, RN notes reviewed, old records reviewed Mode of arrival: ambulatory Limitations: no limitations - History of Present Illness Initial Comments: This is a 37-year-old female. This patient presents today for evaluation of elevated heart rate. Patient's heart was running in the 140s 150s prior to arrival. She had 4 episodes of near-syncope with elevated heart rate today. Patient does follow-up cardiology, recent episodes initially began. Prior pregnancies and was prescribed metoprolol she does not take. Patient symptoms did stop but recently have started sporadically occurring and today was the worst with 4 episodes and 2 significant episodes of near-syncope. MD Complaint: rapid heart beat, "heart racing", "skipped beats", palpitations -: hour(s) Arrhythmia History: SVT Associated Symptoms: shortness of breath, near-syncope Treatments Prior to Arrival: other (0) - Related Data Home Medications Medication Instructions Recorded Confirmed Desvenlafaxine Succinate [Pristiq] 50 mg PO QAM 03/18/20 03/19/20 Multivitamins, Thera [Multivitamin 1 tab PO DAILY 03/18/20 03/19/20 (formulary)] buPROPion HCL [Wellbutrin SR] 100 mg PO QAM 03/18/20 03/19/20 hydrOXYzine pamoate [Vistaril] 25 mg PO HS PRN 03/18/20 03/19/20 lamoTRIgine [LaMICtal] 100 mg PO HS 03/18/20 03/19/20 Allergies Allergy/AdvReac Type Severity Reaction Status Date / Time adhesive Allergy Rash/Hives Verified 10/02/22 17:46 latex Allergy Rash/Hives Verified 10/02/22 17:46 Sulfa (Sulfonamide Allergy Dyspnea Verified 10/02/22 17:46 Antibiotics) Review of Systems ROS Statement: Those systems with pertinent positive or pertinent negative responses have been documented in the HPI. ROS Other: All systems not noted in ROS Statement are negative. Past Medical History Past Medical History: No Reported History History of Any Multi-Drug Resistant Organisms: None Reported Past Surgical History: Cholecystectomy, Orthopedic Surgery, Tonsillectomy Additional Past Surgical History / Comment(s): Left hip surgery Past Anesthesia/Blood Transfusion Reactions: No Reported Reaction Past Psychological History: Anxiety Past Alcohol Use History: Occasional Past Drug Use History: None Reported - Past Family History Father History Unknown: Yes Family Medical History: Hypertension General Exam Limitations: no limitations General appearance: alert, in no apparent distress Head exam: Present: atraumatic, normocephalic, normal inspection Eye exam: Present: normal appearance, PERRL, EOMI. Absent: scleral icterus, c onjunctival injection, periorbital swelling ENT exam: Present: normal exam, mucous membranes moist Neck exam: Present: normal inspection. Absent: tenderness, meningismus, lymphadenopathy Respiratory exam: Present: normal lung sounds bilaterally. Absent: respiratory distress, wheezes, rales, rhonchi, stridor Cardiovascular Exam: Present: regular rate, normal rhythm, normal heart sounds. Absent: systolic murmur, diastolic murmur, rubs, gallop, clicks GI/Abdominal exam: Present: soft, normal bowel sounds. Absent: distended, tenderness, guarding, rebound, rigid Extremities exam: Present: normal inspection, full ROM, normal capillary refill. Absent: tenderness, pedal edema, joint swelling, calf tenderness Back exam: Present: normal inspection Neurological exam: Present: alert, oriented X3, CN II-XII intact Psychiatric exam: Present: normal affect, normal mood Skin exam: Present: warm, dry, intact, normal color. Absent: rash Course Vital Signs 10/02/22 10/02/22 10/02/22 17:42 19:41 20:46 Temperature 97.8 F Pulse Rate 80 75 77 Respiratory 20 18 18 Rate Blood Pressure 115/70 112/66 108/71 O2 Sat by Pulse 100 100 98 Oximetry - Reevaluation(s) Reevaluation #1: 10/03/22 00:26 Medical records reviewed Reevaluation #2: 10/03/22 00:26 Patient had no significant elevated heart rate here in the ER for recurrent near syncopal events Reevaluation #3: 10/03/22 00:26 Patient informed results questions answered Reevaluation #4: 10/03/22 00:26 Was pt. sent in by a medical professional or institution? @ -no Did you speak to anyone other than the patient for history? @ -no Did you review nursing and triage notes? @ -agree Were old charts reviewed? @ -no Differential Diagnosis? @ -prior EKG interpreted by me (3pts min.)? @ -yes X-rays interpreted by me (1pt min.)? @ -no CT interpreted by me (1pt min.)? @ -no U/S interpreted by me (1pt. min.)? @ -no What testing was considered but not performed? (CT, X-rays, U/S, labs)? Why? @ -no What meds were considered but not given? Why? @ -no Did you discuss the management of the patient with other professionals? @ -no Did you reconcile home meds? @ -no Was smoking cessation discussed for >3mins.? @ -no Was critical care preformed (if so, how long)? @ -no Were there social determinants of health that impacted care today? How? (Homelessness, low income, unemployed, alcoholism, drug addiction, transportation, low edu. Level, literacy, decrease access to med. care, residential, rehab)? @ -no Was there de-escalation of care discussed even if they declined? (Discuss DNR or withdrawal of care, Hospice)? @ -no What co-morbidities impacted this encounter? (DM, HTN, Smoking, COPD, CAD, Cancer, CVA, Hep., AIDS, mental health diagnosis, sleep apnea, morbid obesity)? @ -none Was patient admitted / discharged? @ -37 female DEL with SVT tachycardia and arrhythmia. Patient is given metoprolol normal heart rate here in the ER, improving, electrolytes optimized patient can be discharged home Discharged Undiagnosed new problem with uncertain prognosis? @ -no Drug Therapy requiring intensive monitoring for toxicity (Heparin, Nitro, Insulin, Cardizem)? @ -no Were any procedures done? @ -no Diagnosis/symptom? @ -Arrhythmia and tachycardia, SVT Acute, or Chronic, or Acute on Chronic? @ -Acute Uncomplicated (without systemic symptoms) or Complicated (systemic symptoms)? @ -uncomplicated Side effects of treatment? @ -no Exacerbation, Progression, or Severe Exacerbation] @ -no Poses a threat to life or bodily function? @ -yes arrhythmia can lead to and hemodynamic instability Reevaluation #5: 10/03/22 00:26 Differential Syncope: Valvular disease, hypertrophic cardiomyopathy, pulmonary embolism, tamponade, tachycardia, bradycardia, IL, hypovolemia, hemorrhage, dissection, anemia, intracranial hemorrhage, seizure, hypoglycemia, carbon monoxide poisoning, this is not meant to be an all-inclusive list. EKG Findings - EKG Comments: EKG Findings:: EKG is sinus 93 MI 150 QRS 104 QTc 452 - EKG Results: EKG: interpreted by KIRSTIE Medical Decision Making - Medical Decision Making 37 female DF for evaluation. Patient has no recurrent palpitations near syncopal events of tachycardia here in the ER, patient will continue on , given metoprolol tab if symptoms return and encouraged to follow up with cardiology next week - Lab Data Result diagrams: 10/02/22 19:39 10/02/22 19:39 Lab Results 10/02/22 10/02/22 10/02/22 Range/Units 19:39 19:39 19:39 WBC 6.5 (3.8-10.6) k/uL RBC 4.32 (3.80-5.40) m/uL Hgb 14.0 (11.4-16.0) gm/dL Hct 41.0 (34.0-46.0) % MCV 95.0 (80.0-100.0) fL MCH 32.4 (25.0-35.0) pg MCHC 34.1 (31.0-37.0) g/dL RDW 11.6 (11.5-15.5) % Plt Count 335 (150-450) k/uL MPV 7.1 Neutrophils % 81 % Lymphocytes % 13 % Monocytes % 4 % Eosinophils % 0 % Basophils % 1 % Neutrophils # 5.3 (1.3-7.7) k/uL Lymphocytes # 0.9 L (1.0-4.8) k/uL Monocytes # 0.3 (0-1.0) k/uL Eosinophils # 0.0 (0-0.7) k/uL Basophils # 0.0 (0-0.2) k/uL PT 10.2 (9.0-12.0) sec INR 1.0 (<1.2) Sodium 138 (137-145) mmol/L Potassium 3.8 (3.5-5.1) mmol/L Chloride 100 (98-107) mmol/L Carbon Dioxide 30 (22-30) mmol/L Anion Gap 8 mmol/L BUN 18 H (7-17) mg/dL Creatinine 0.64 (0.52-1.04) mg/dL Est GFR (CKD-EPI)AfAm >90 (>60 ml/min/1.73 sqM) Est GFR (CKD-EPI)NonAf >90 (>60 ml/min/1.73 sqM) Glucose 91 (74-99) mg/dL Calcium 9.1 (8.4-10.2) mg/dL Phosphorus 3.8 (2.5-4.5) mg/dL Magnesium 1.9 (1.6-2.3) mg/dL Total Bilirubin 0.4 (0.2-1.3) mg/dL AST 28 (14-36) U/L ALT 42 H (4-34) U/L Alkaline Phosphatase 59 (38-126) U/L Troponin I (0.000-0.034) ng/mL Total Protein 7.0 (6.3-8.2) g/dL Albumin 4.3 (3.5-5.0) g/dL TSH 0.234 L (0.465-4.680) mIU/L 10/02/22 Range/Units 19:39 WBC (3.8-10.6) k/uL RBC (3.80-5.40) m/uL Hgb (11.4-16.0) gm/dL Hct (34.0-46.0) % MCV (80.0-100.0) fL MCH (25.0-35.0) pg MCHC (31.0-37.0) g/dL RDW (11.5-15.5) % Plt Count (150-450) k/uL MPV Neutrophils % % Lymphocytes % % Monocytes % % Eosinophils % % Basophils % % Neutrophils # (1.3-7.7) k/uL Lymphocytes # (1.0-4.8) k/uL Monocytes # (0-1.0) k/uL Eosinophils # (0-0.7) k/uL Basophils # (0-0.2) k/uL PT (9.0-12.0) sec INR (<1.2) Sodium (137-145) mmol/L Potassium (3.5-5.1) mmol/L Chloride (98-107) mmol/L Carbon Dioxide (22-30) mmol/L Anion Gap mmol/L BUN (7-17) mg/dL Creatinine (0.52-1.04) mg/dL Est GFR (CKD-EPI)AfAm (>60 ml/min/1.73 sqM) Est GFR (CKD-EPI)NonAf (>60 ml/min/1.73 sqM) Glucose (74-99) mg/dL Calcium (8.4-10.2) mg/dL Phosphorus (2.5-4.5) mg/dL Magnesium (1.6-2.3) mg/dL Total Bilirubin (0.2-1.3) mg/dL AST (14-36) U/L ALT (4-34) U/L Alkaline Phosphatase (38-126) U/L Troponin I <0.012 (0.000-0.034) ng/mL Total Protein (6.3-8.2) g/dL Albumin (3.5-5.0) g/dL TSH (0.465-4.680) mIU/L - EKG Data -: EKG Interpreted by Me Critical Care Time Critical Care Time: Yes Total Critical Care Time: 31 Disposition Clinical Impression: Palpitations, Sinus tachycardia, Tachycardia, SVT (supraventricular tachycardia), Syncope, Near syncope Disposition: HOME SELF-CARE Condition: Good Instructions (If sedation given, give patient instructions): Heart Palpitations (ED) Is patient prescribed a controlled substance at d/c from ED?: No Referrals: Monica Malave MD [Primary Care Provider] - 1-2 days Time of Disposition: 20:25
[2022-10-02 19:44] VITALS: RESP 18
[2022-10-02 20:11] LABS: Basophils % (A) 1 %; Eosinophils % (A) 0 %; Lymphocytes # (A) 0.9 k/uL (1.0-4.8); Lymphocytes % (A) 13 %; MCH 32.4 pg (25.0-35.0); MCHC 34.1 g/dL (31.0-37.0); Mean Platelet Volume 7.1; Monocytes # (A) 0.3 k/uL (0-1.0); Monocytes % (A) 4 %; Neutrophils # (A) 5.3 k/uL (1.3-7.7); Neutrophils % (A) 81 %; Platelet Count 335 k/uL (150-450); RBC 4.32 m/uL (3.80-5.40); RDW 11.6 % (11.5-15.5); WBC 6.5 k/uL (3.8-10.6)
[2022-10-02 20:18] LABS: ALT 42 U/L (4-34); AST 28 U/L (14-36); African American GFR (CKD) >90 (>60 ml/min/1.73 sqM); Albumin 4.3 g/dL (3.5-5.0); Alkaline Phosphatase 59 U/L (38-126); Anion Gap 8 mmol/L; Blood Urea Nitrogen 18 mg/dL (7-17); Calcium 9.1 mg/dL (8.4-10.2); Carbon Dioxide 30 mmol/L (22-30); Chloride 100 mmol/L (98-107); Glucose 91 mg/dL (74-99); Magnesium 1.9 mg/dL (1.6-2.3); Non-African American GFR(CKD) >90 (>60 ml/min/1.73 sqM); Phosphorus 3.8 mg/dL (2.5-4.5); Potassium 3.8 mmol/L (3.5-5.1); Sodium 138 mmol/L (137-145); Total Bilirubin 0.4 mg/dL (0.2-1.3)
[2022-10-02] MEDS ORDERED: MAGNESIUM OXIDE 400 MG TAB PO STA (20:27)
[2022-10-02] MEDS ORDERED: METOPROLOL SUCCINATE (ER) 25 MG TAB.ER.24H PO STA (20:27)
[2022-10-02] MEDS ORDERED: POTASSIUM BICARBONATE/CIT AC 20 MEQ TABLET.EFF PO ONE (20:45)
[2022-10-02 20:47] VITALS: BP 108/71; PULSE 77
[2022-10-02 20:55] LABS: Prothrombin Time 10.2 sec (9.0-12.0)
== END 2022-10-02 20:50 | disposition home or self-care (01) ==
LOC: EC 17:39
DX: I47.1 Supraventricular tachycardia (principal); R55 Syncope and collapse; F41.9 Anxiety disorder, unspecified; Z79.899 Other long term (current) drug therapy; Z91.09 Other allergy status, other than to drugs and biological substances; Z91.040 Latex allergy status; Z88.2 Allergy status to sulfonamides
CPT/HCPCS: 36415; 80053; 83735; 84100; 84443; 84484; 85025; 85610; 93005; 96360; 99285

== ENCOUNTER → 2023-03-02 | Outpatient (CLI) | payer BC ==
--- NOTE | 2023-03-02 11:27 | CT ---
EXAMINATION TYPE: CT angio chest CT DLP: 139.3 mGycm, Automated exposure control for dose reduction was used. DATE OF EXAM: 03/02/2023 11:15 AM COMPARISON: CT Angio 07/23/2015 CLINICAL INDICATION:Female, 37 years old with history of R06.02 SHORTNESS OF BREATH U07.1 COVID-19; c hest tightness post covid TECHNIQUE/CONTRAST: CTA scan of the thorax is performed with IV Contrast, patient injected with 64cc mL of Isovue 370, [place] P images are created and reviewed these are created on a separate workstation.. FINDINGS: Lungs/Pleura: No evidence of focal consolidation, pleural effusion or pneumothorax. Airway: Large airways are patent. Heart: Heart is within normal limits for size. Vasculature: No evidence for intramural hematoma on noncontrast imaging. No evidence of intimal flap to suggest dissection. No aneurysm identified. Scattered atherosclerotic disease. Mediastinum: No gross evidence of adenopathy. Musculoskeletal: No acute osseous abnormalities Soft Tissues: Unremarkable. Lower neck: No significant findings. Upper Abdomen: IMPRESSION: 1. No evidence of pulmonary embolism, aortic dissection or occlusion. 2. No evidence for acute process. No evidence for post covid interstitial lung disease.
== END | disposition home or self-care (01) ==
LOC: RADCTMAIN 10:15
PROVIDERS: ATTEND Family Medicine
DX: U07.1 COVID-19 (principal)
CPT/HCPCS: 71275; Q9967